=== PATIENT | male | born 1945 | race Caucasian/White ===

== ENCOUNTER 2019-11-15 10:27 | Day surgery (SDC) | payer OTHER ==
[2019-11-06 17:12] VITALS: BMI 26.4
[2019-11-15] MEDS ORDERED: PROPOFOL 20 ML ONE (11:18)
[2019-11-15 12:20] VITALS: TEMP 97.6
[2019-11-15 12:52] VITALS: BP 141/80; PULSE 61
--- NOTE | 2019-11-18 15:11 | PATH ---
Surgical Pathology Report Patient Name: TONIA LEWIS [facility]. Rec. #: [id number] /Age/Gender: 1945 (Age: 74) / M Account: [id number] Location: [facility] Taken: 11/15/2019 Received: 11/15/2019 Reported: 11/18/2019 Physicians: Geovanna Winkler M.D. Specimen(s) Received A: POLYP PROXIMAL TRANSVERSE COLON B: POLYP DISTAL TRANSVERSE COLON Clinical History Abdominal pain, history of polyps Postoperative diagnosis: Polyps, hemorrhoids Final Diagnosis A. PROXIMAL TRANSVERSE COLON, POLYP, BIOPSY: COLONIC MUCOSA, PREDOMINANTLY DENUDED OF SURFACE EPITHELIUM, WITH FOCAL FEATURES SUGGESTIVE OF ADENOMATOUS CHANGE. (SEE NOTE) B. DISTAL TRANSVERSE COLON, POLYP, BIOPSY: COLONIC MUCOSA, PREDOMINANTLY DENUDED OF SURFACE EPITHELIUM, WITH FOCAL FEATURES SUGGESTIVE OF ADENOMATOUS CHANGE. (SEE NOTE) Note: Multiple tissue levels have been examined. Electronically Signed Ariela Solano M.D. Gross Description A. Received in formalin, labeled "polyp proximal transverse colon" are 3 escalera, irregular portions of soft tissue ranging from 0.1-0.3 cm. in greatest dimension. The specimens are submitted in toto in one cassette. B. Received in formalin, labeled "polyp distal transverse colon" are 2 escalera, irregular portions of soft tissue measuring 0.2 and 0.3 cm. in greatest dimension. The specimens are submitted in toto in one cassette. DL/11/15/2019 saudi/11/15/2019
== END 2019-11-15 12:50 | disposition home or self-care (01) ==
LOC: FASU-ENDO 10:27
PROVIDERS: ATTEND Internal Medicine Gastroenterology
PROC: 0DBL8ZX Excision of Transverse Colon, Via Natural or Artificial Opening Endoscopic, Diagnostic (ICD-10-PCS; principal; 2019-11-15 11:30)
DX: Z86.010 Personal history of colon polyps (principal); D12.3 Benign neoplasm of transverse colon; K64.1 Second degree hemorrhoids
CPT/HCPCS: 88305-TC

== ENCOUNTER 2023-01-06 07:15 | Day surgery (SDC) | payer OTHER ==
[2022-12-29 11:55] VITALS: BMI 26.7
[2023-01-06] MEDS ORDERED: PROPOFOL 160 ML ONE (07:32)
[2023-01-06] MEDS ORDERED: LIDOCAINE HCL/PF 2% SDV 5ML VIAL ONE (07:33)
[2023-01-06 07:44] VITALS: TEMP 97.7
[2023-01-06 09:35] VITALS: RESP 16
[2023-01-06 09:56] VITALS: BP 122/74; PULSE 82
== END 2023-01-06 10:10 | disposition home or self-care (01) ==
LOC: FASU-ENDO 07:15
PROVIDERS: ATTEND Internal Medicine Gastroenterology
PROC: 0DB98ZX Excision of Duodenum, Via Natural or Artificial Opening Endoscopic, Diagnostic (ICD-10-PCS; 2023-01-06)
PROC: 0DB68ZX Excision of Stomach, Via Natural or Artificial Opening Endoscopic, Diagnostic (ICD-10-PCS; 2023-01-06)
PROC: 0DB48ZX Excision of Esophagogastric Junction, Via Natural or Artificial Opening Endoscopic, Diagnostic (ICD-10-PCS; 2023-01-06)
PROC: 0DBN8ZX Excision of Sigmoid Colon, Via Natural or Artificial Opening Endoscopic, Diagnostic (ICD-10-PCS; principal; 2023-01-06 09:03)
DX: Z12.11 Encounter for screening for malignant neoplasm of colon (principal); K63.5 Polyp of colon; K64.1 Second degree hemorrhoids; K29.50 Unspecified chronic gastritis without bleeding; K21.00 Gastro-esophageal reflux disease with esophagitis, without bleeding; R10.13 Epigastric pain; Z86.010 Personal history of colon polyps
CPT/HCPCS: 88305-TC; 88342-TC